=== PATIENT | female | born 2000 ===

== ENCOUNTER 2024-11-05 06:47 | Outpatient (REF) | payer OTHER, SELFPAY ==
--- NOTE | ~2024-11-05 | US_ITS ---
EXAMINATION: US FIRST TRIMESTER OB HISTORY: LMP 09/24/24, DATING TECHNIQUE: Endovaginal scanning was performed. FINDINGS: There is a single, intrauterine gestational sac and yolk sac. There may be a tiny pole which is too small to accurately measure. The mean sac diameter is 1.3 cm. AUA = 6 weeks 2 days TAHIRA(AUA) = 06/29/2025 LMP = 09/24/2024 GA(LMP) = 6 weeks 0 days TAHIRA(LMP) = 07/01/2025 CRL = a possible pole is noted with a crown rump length of 0.17cm Yolk Sac: seen FHR = 80bpm. It is uncertain whether this represents the maternal heart rate. Right ovary: The right ovary measures 4.5 x 2.3 x 2.2 cm and is unremarkable. Left ovary: The left ovary measures 2.6 x 1.4 x 1.5 cm and is unremarkable. Cul-de-sac: No free fluid US/US OB pelvic and transvaginal IMPRESSION: Single, live intrauterine of estimated gestational age 6 weeks, 2 days by mean sac diameter. A possible pole is identified. Doppler interrogation of this structure demonstrates a heart rate of 80, which may represent the maternal heart rate. This would be low for the heart rate, and follow-up is recommended. Electronically signed by: Nick Miranda MD 11/06/2024 07:44 AM EDT
== END 2024-11-05 06:48 | disposition home or self-care (01) ==
LOC: HO.UMASIMG 06:47
PROVIDERS: Visit Provider Nurse Practitioner Women's Health
DX: Z34.91 Encounter for supervision of normal pregnancy, unspecified, first trimester (principal); Z34.01 Encounter for supervision of normal first pregnancy, first trimester
CPT/HCPCS: 76801; 76817

== ENCOUNTER → 2024-11-05 14:00 | Outpatient (BNV) | payer OTHER, SELFPAY | PROVIDERS: Visit Provider Radiology Diagnostic Radiology | DX: Z36.89 Encounter for other specified antenatal screening (principal) | CPT/HCPCS: 76801; 76817 ==